=== PATIENT | male | born 1965 | race Caucasian/White ===

== ENCOUNTER 2016-07-12 06:12 | Day surgery (SDC) | payer OTHER ==
[~2016-07-12] VITALS: Ht 172.7 cm; Wt 85.9 kg
[2016-07-12 07:09] VITALS: Ht 172.7 cm; Wt 85.9 kg
[2016-07-12] MEDS ORDERED: TRAM50TA2 PO (07:23)
[2016-07-12] MEDS ORDERED: LISI10TA2 PO (07:23)
[2016-07-12] MEDS ORDERED: METF500T3 PO (07:23)
[2016-07-12] MEDS ORDERED: OMEP40CA6 PO (07:23)
[2016-07-12] MEDS ORDERED: METH750T2 PO (07:23)
[2016-07-12 07:44] VITALS: BP 128/83; PULSE 54; RESP 18
[2016-07-12] MEDS ORDERED: PROPOFOL 40 ML ONE (07:47)
[2016-07-12] MEDS ORDERED: LIDOCAINE 2% (SDV) 5 ML INJ ONE (07:48)
[2016-07-12] MEDS ORDERED: PROPOFOL 20 ML ONE (08:04)
--- NOTE | 2016-07-12 09:09 | GILP ---
DATE OF PROCEDURE: NAME OF PROCEDURES: 1. Esophagogastroduodenoscopy and biopsy. 2. Colonoscopy and biopsy. SURGEON: Randy Horvath MD PREOPERATIVE DIAGNOSES: 1. Chronic heartburn. 2. Screening colonoscopy. POSTOPERATIVE DIAGNOSES: 1. Reflux esophagitis. 2. Gastritis with erosions. 3. Gastric mucosal biopsies were taken for Helicobacter pylori test. 4. Colonoscopy all the way to the cecum. 5. Prominent ileocecal valve and biopsies were taken for histopathology. 6. Internal hemorrhoids. INDICATION FOR THE PROCEDURE: Mr. Scot Chou is a 51-year-old male patient who had chronic heartbur n, not responding to therapy. Patient also needed screening colonoscopy. The procedures and possible complications were well explained to the patient, he understood and cons ented to the procedure. DESCRIPTION OF PROCEDURE: Under the influence of anesthesia, the gastroscope was carefully introduc ed into the esophagus and under direct vision, it was advanced to the stomach and through the pyloru s into the duodenal bulb and descending duodenum. FINDINGS: ESOPHAGUS: The patient had gastroesophageal reflux disease. STOMACH: He had gastritis with erosions. Gastric mucosal biopsies were taken for H. pylori test. DUODENUM: Normal. The colonoscope was carefully introduced in the rectum and under direct vision, it was advanced all the way to the cecum. FINDINGS: The patient had very prominent ileocecal valve and biopsies were taken for histopathology . He was noted to have internal hemorrhoids. He tolerated the procedures very well and there was no complication from the procedures. At the end of the procedures, he was awake with stable vital signs and he was discharged home to the care of h is family. Please see postoperative diagnosis. IMPRESSION: 1. Gastroesophageal reflux disease. 2. Gastritis with erosions. 3. Gastric mucosal biopsies were taken for Helicobacter pylori test. 4. Colonoscopy all the way to the cecum. 5. Biopsies were taken from prominent ileocecal valve. 6. Internal hemorrhoids. PLAN: 1. Continue omeprazole. 2. Add Zantac 300 mg p.o. at bedtime. 3. Await histopathology reports. 4. The timing for next colonoscopy will be distended depending upon the biopsy report. Dictated By: RANDY VALENTIN/CHRISTOPHER Conf#: [id number] DID#: [id number]
[2016-07-12 09:11] VITALS: BP 137/79; RESP 20
== END 2016-07-12 13:42 | disposition home or self-care (01) ==
LOC: GIL 06:12
PROVIDERS: ATTEND Internal Medicine Gastroenterology
DX: Z12.11 Encounter for screening for malignant neoplasm of colon (principal); K21.0 Gastro-esophageal reflux disease with esophagitis; K29.60 Other gastritis without bleeding; K64.8 Other hemorrhoids; I10 Essential (primary) hypertension; E11.9 Type 2 diabetes mellitus without complications
CPT/HCPCS: 82962; 87081; 88305